=== PATIENT | female | born 1990 | race Caucasian/White ===

== ENCOUNTER 2018-02-11 16:44 | Emergency (ER) | payer OTHER ==
[~2018-02-11] VITALS: Ht 175.3 cm; Wt 65.8 kg
[2018-02-11] MEDS ORDERED: ONDANSETRON HCL INJ 2 MG/ML VIAL IV STA (16:58)
[2018-02-11] MEDS ORDERED: MORPHINE SULFATE 5 MG/ML VIAL IV ONE (17:00)
[2018-02-11] MEDS ORDERED: SODIUM CHLORIDE 0.9% 1000ML 1,000 ML IV ONE (17:00)
[2018-02-11 17:10] LABS: BASOPHILS # (AUTO) 0.1 (0.0-0.1); BASOPHILS % 0.8 % (0.0-1.0); EOSINOPHILS # (AUTO) 0.5 (0.0-0.4); EOSINOPHILS % 4.6 % (0.0-6.0); HEMATOCRIT 41.5 % (34.2-44.1); HEMOGLOBIN 14.4 g/dL (12.0-16.0); LYMPHOCYTES # (AUTO) 3.4 (1.0-3.2); LYMPHOCYTES % 29.4 % (18.0-39.1); MEAN CORPUSCULAR HEMOGLOBIN 30.8 pg (28-32); MEAN CORPUSCULAR HGB CONC 34.7 g/dL (31-35); MEAN CORPUSCULAR VOLUME 88.7 fL (81-99); MONOCYTES # (AUTO) 1.1 (0.2-0.8); MONOCYTES % 9.6 % (4.4-11.3); NEUTROPHILS # (AUTO) 6.4 (2.1-6.9); NEUTROPHILS % 55.3 % (38.7-80.0); PLATELET COUNT 394 x10e3/uL (140-360); RED BLOOD COUNT 4.68 x10e6/uL (3.6-5.1); RED CELL DISTRIBUTION WIDTH 11.9 % (11.7-14.4)
[2018-02-11] MEDS ORDERED: MORPHINE SULFATE INJ 4 MG/ML INJ IV NR (17:15)
[2018-02-11] MEDS ORDERED: MORPHINE SULFATE 2 MG/ML SYR ONE (17:15)
[2018-02-11 17:24] LABS: ALBUMIN 4.3 g/dL (3.5-5.0); ALBUMIN/GLOBULIN RATIO 1.1 (0.8-2.0); ANION GAP 16.8 mmol/L (8-16); CALCIUM 10.2 mg/dL (8.4-10.2); CREATININE, SERUM 1.1 mg/dL (0.57-1.11); POTASSIUM 3.8 mmol/L (3.5-5.1)
[2018-02-11] MEDS ORDERED: ONDANSETRON HCL INJ 2 MG/ML VIAL IV NR (17:30)
[2018-02-11] MEDS ORDERED: HYDROMORPHONE 1MG/1ML INJ IV ONE (17:44)
[2018-02-11 18:24] LABS: BILIRUBIN,URINE NEGATIVE (NEGATIVE); CLARITY,URINE SL CLOUDY (CLEAR); COLOR,URINE YELLOW (YELLOW); KETONES,URINE NEGATIVE (NEGATIVE); LEUKOCYTE ESTERASE ,URINE NEGATIVE (NEGATIVE); NITRITE,URINE NEGATIVE (NEGATIVE); PROTEIN,URINE DIPSTICK NEGATIVE (NEGATIVE); URINE UROBILINOGEN 0.2 mg/dL (0.2 - 1)
--- NOTE | 2018-02-11 18:25 | Diagnostic Imaging Report ---
PROCEDURE: CT ABDOMEN AND PELVIS WITH CONTRAST TECHNIQUE: The abdomen and pelvis were scanned utilizing a multidetector helical scanner from the diaphragm to the lesser trochanter after the IV administration of 100cc of Isovue 370 and the oral administration of water. Coronal and sagittal multiplanar reformations were obtained. Total DLP: 251.22 mGy-cm COMPARISON: None. INDICATIONS: right lower quad pain today FINDINGS: LOWER THORAX: Normal. HEPATOBILIARY: No focal hepatic lesions. No biliary ductal dilatation. SPLEEN: No splenomegaly. PANCREAS: No focal masses or ductal dilatation. ADRENALS: No adrenal nodules. KIDNEYS/URETERS: No hydronephrosis, stones, or solid mass lesions. PELVIC ORGANS/BLADDER: Unremarkable. 2 cm left corpus luteum. PERITONEUM / RETROPERITONEUM: No free air or fluid. LYMPH NODES: No lymphadenopathy. VESSELS: Unremarkable. GI TRACT: No distention or wall thickening. Appendix is normal. BONES AND SOFT TISSUES: Unremarkable. IMPRESSION: 1. Normal appendix. 2. Left corpus luteum. Dictated by: Casper Boogie M.D. on 02/11/2018 at 18:30 Electronically approved by: Casper Boogie M.D. on 02/11/2018 at 18:30
--- NOTE | 2018-02-11 18:26 | Diagnostic Imaging Report ---
PROCEDURE:PELVIC DOPPLER US COMPARISON:None. INDICATIONS:r/o TORSION CONCLUSION: Please refer to transabdominal pelvic ultrasound performed at the same date and time for full dictated report. Dictated by: Casper Boogie M.D. on 02/11/2018 at 18:31 Electronically approved by: aCsper Boogie M.D. on 02/11/2018 at 18:31
--- NOTE | 2018-02-11 18:32 | Diagnostic Imaging Report ---
PROCEDURE:TRANSVAGINAL ULTRASOUND and PELVIC DOPPLER COMPARISON:CT abdomen and pelvis 02/11/2018. INDICATIONS:r/o TORSION TECHNIQUE: Grayscale transverse and sagittal transvaginal images were obtained of the pelvis. Transabdominal imaging was not performed. Dopplers were performed to evaluate the ovarian vasculature. FINDINGS: UTERUS: 7.5 x 3.6 x 4.7 cm. Uniform echotexture. ENDOMETRIUM: 0.6 cm. Uniform echotexture. RIGHT OVARY: 3.6 x 2.0 x 2.2 cm. 2.1 x 1.4 x 1.2 cm hemorrhagic right ovarian cyst. Normal arterial and venous vascular waveforms. LEFT OVARY: 3.6 x 2.2 x 3.3 cm. 2.3 cm corpus luteum. Normal arterial and venous vascular waveforms. There is no free fluid within the pelvis. No adnexal masses. CONCLUSION: 1. 2.1 cm right ovarian hemorrhagic cyst. 2. 2.3 cm left corpus luteum. 3. Normal arterial and venous vascular waveforms. No evidence of ovarian torsion. Dictated by: Casper Boogie M.D. on 02/11/2018 at 18:37 Electronically approved by: Casper Boogie M.D. on 02/11/2018 at 18:37
[2018-02-11 18:45] LABS: EPITHELIAL CELLS,URINE MANY /LPF; TRANSITIONAL EPI CELLS,URINE MODERATE
[2018-02-11 19:05] VITALS: BP 119/83
[2018-02-11] MEDS ORDERED: IOPAMIDOL 370 MG/ML 200 ML INFUS..BTL INJ ONE (20:28)
[2018-02-11] MEDS ORDERED: SODIUM CHLORIDE 0.9% 50ML 50 ML ONE (20:28)
== END 2018-02-11 19:11 | disposition home or self-care (01) ==
LOC: ER 16:44
DX: R10.11 Right upper quadrant pain (principal); R10.31 Right lower quadrant pain; R11.0 Nausea; N83.201 Unspecified ovarian cyst, right side; F31.9 Bipolar disorder, unspecified
CPT/HCPCS: 36415; 74177; 76830; 80053; 81001; 84702; 85025; 93976; 99284; J1170; J2270; J2405; J7030; Q9967